=== PATIENT | female | born 1985 | race African-American/Black ===

== ENCOUNTER 2017-08-22 05:17 | Emergency (ER) | payer OTHER ==
[~2017-08-22] VITALS: Ht 167.6 cm; Wt 77.1 kg
--- NOTE | ~2017-08-22 | EKG ---
[address] [address] ELECTROCARDIOGRAM REPORT Name: KATERINE LEE Room #: [facility]#: [id number] Admission: 08/22/17 Attend Phys: Discharge: 08/22/17 Date of : 85 Report #: [id number] THIS REPORT FOR: //name// [facility] ED Test Date: 2017-08-22 Test Time: 05:40:13 Pat Name: KATERINE LEE Department: Room: Gender: F Sap Bpc Developer: [email or web address] : 1985 Requested By: Sagrario Slaughter Order Number: [id number] MD: Aime Rea Measurements Intervals Moro Rate: 68 P: 69 CA: 179 QRS: 15 QRSD: 78 T: 15 QT: 386 QTc: 411 Interpretive Statements Sinus rhythm No previous ECG available for comparison Electronically Signed On 08-22-2017 16:10:29 BOTTLE [employer]ORTER by Aime Rea [email or web address] <ELECTRONICALLY SIGNED> By: Aime Rea MD 08/22/17 1610 0540 0540 Aime Rea MD /CHARLES
[2017-08-22 06:12] LABS: BASOPHILS 0.6 % (0.0-2.0); EOSINOPHILS 0.8 % (0.0-3.0); HEMATOCRIT 36.5 % (37.0-47.0); HEMOGLOBIN 11.4 gm/dL (12.0-15.0); LYMPHOCYTES 31.2 % (24.0-44.0); MANUAL DIFF NO; MCH 26.1 pg (26.0-34.0); MCHC 31.2 g/dL (28.0-37.0); MCV 83.6 fL (80.0-100.0); MONOCYTES 10.1 % (1.0-8.0); PLATELET COUNT 223 thou/uL (150-400); POLYS 57.3 % (36.0-66.0); RBC 4.37 mil/uL (4.20-5.00); WBC 5.3 thou/uL (4.0-11.0)
[2017-08-22 06:24] LABS: CALCIUM 8.6 mg/dL (8.5-10.1); CREATININE 0.8 mg/dL (0.6-1.0); POTASSIUM 3.7 mmol/L (3.5-5.1)
[2017-08-22 06:32] LABS: TROPONIN-I 0.04 ng/mL (<0.06)
[2017-08-22] MEDS ORDERED: NAPROSYN500 MG PO (06:37)
[2017-08-22 06:56] VITALS: BP 118/68
== END 2017-08-22 06:57 | disposition home or self-care (01) ==
LOC: ER 05:17
PROVIDERS: Emergency Medicine
DX: R07.89 Other chest pain (principal); N64.4 Mastodynia; M54.2 Cervicalgia

== ENCOUNTER 2017-11-01 05:42 | Emergency (ER) | payer OTHER ==
[~2017-11-01] VITALS: Ht 167.6 cm; Wt 77.1 kg
[~2017-11-01 05:42] MED LIST: NAPROSYN500 MG PO
[2017-11-01] MEDS ORDERED: NAPROSYN500 MG PO (06:10)
[2017-11-01] MEDS ORDERED: BACTRIM DS TAB1 EACH PO (06:30)
== END 2017-11-01 06:00 | disposition home or self-care (01) ==
LOC: ER 05:42
DX: G89.29 Other chronic pain (principal); M54.9 Dorsalgia, unspecified; L02.91 Cutaneous abscess, unspecified

== ENCOUNTER 2017-11-29 05:12 | Emergency (ER) | payer OTHER ==
[~2017-11-29] VITALS: Ht 167.6 cm; Wt 79.4 kg
[~2017-11-29 05:12] MED LIST changes: +BACTRIM DS TAB1 EACH PO
[2017-11-29] MEDS ORDERED: FLAGYL500 MG PO (05:53)
== END 2017-11-29 06:09 | disposition home or self-care (01) ==
LOC: ER 05:12
DX: N76.0 Acute vaginitis (principal); B96.89 Other specified bacterial agents as the cause of diseases classified elsewhere

== ENCOUNTER 2017-12-21 18:43 | Emergency (ER) | payer OTHER ==
[~2017-12-21] VITALS: Ht 167.6 cm; Wt 79.8 kg
[~2017-12-21 18:43] MED LIST changes: +FLAGYL500 MG PO
[2017-12-21 19:00] VITALS: BP 134/78
[2017-12-21 19:34] LABS: URINE BILIRUBIN NEGATIVE (Negative); URINE BLOOD 1+ (Negative); URINE CLARITY CLEAR; URINE COLOR YELLOW; URINE GLUCOSE-RANDOM* NEGATIVE (Negative); URINE KETONES NEGATIVE (Negative); URINE LEUKOCYTES NEGATIVE (Negative); URINE NITRITE NEGATIVE (Negative); URINE PROTEIN (DIPSTICK) NEGATIVE (Negative); URINE SPECIFIC GRAVITY >= 1.030 (1.005-1.035); URINE UROBILINOGEN 0.2 E.U./dl (0.2-1.0)
[2017-12-21 19:40] LABS: BACTERIA 1-9 Few /HPF (None Seen); SQUAMOUS 0-3 Few /LPF (0-3); URINE RBC 0-2 Rare /HPF (0-2); URINE WBC 0-5 Rare /HPF (0-5)
[2017-12-21 19:41] LABS: CASTS None Seen /LPF (None Seen); CRYSTALS None Seen /LPF (None Seen); MUCUS 0-3 Light strn/LPF (None Seen)
== END 2017-12-21 20:55 | disposition left against medical advice (07) ==
LOC: ER 18:43
PROVIDERS: Nurse Practitioner
DX: N39.0 Urinary tract infection, site not specified (principal)

== ENCOUNTER → 2018-02-18 | Emergency (ER) | payer OTHER ==
[~2018-02-18] VITALS: Ht 167.6 cm; Wt 77.1 kg
[2018-02-18 06:48] LABS: URINE BILIRUBIN NEGATIVE (Negative); URINE BLOOD NEGATIVE (Negative); URINE CLARITY CLEAR; URINE COLOR YELLOW; URINE GLUCOSE-RANDOM* NEGATIVE (Negative); URINE KETONES NEGATIVE (Negative); URINE LEUKOCYTES-REFLEX NEGATIVE (Negative); URINE NITRITE-REFLEX NEGATIVE (Negative); URINE PROTEIN (DIPSTICK) NEGATIVE (Negative); URINE SPECIFIC GRAVITY >= 1.030 (1.005-1.035); URINE UROBILINOGEN 0.2 E.U./dl (0.2-1.0)
[2018-02-18 07:20] VITALS: BP 142/84
[2018-02-21 14:09] LABS: NEISSERIA GONORRHEA-PCR Negative (Negative)
== END ==
LOC: ER 06:05
PROVIDERS: Emergency Medicine
DX: N72 Inflammatory disease of cervix uteri (principal)